=== PATIENT | female | born 2000 | race Caucasian/White ===

== ENCOUNTER 2023-05-16 18:57 | Emergency (ER) | payer SELFPAY ==
[~2023-05-16] VITALS: Ht 157.5 cm; Wt 58.0 kg
[2023-05-16 19:07] VITALS: O2SAT 100
[2023-05-16] MEDS ORDERED: SULF1TAB48 MT (21:41)
[2023-05-16] MEDS ORDERED: AMOX1TAB16 MT (21:41)
[2023-05-16] MEDS ORDERED: IBUP-2029 PO (21:41)
[2023-05-16 21:51] VITALS: BP 116/68; PULSE 84; RESP 16; TEMP 98.1
== END 2023-05-16 21:59 | disposition home or self-care (01) ==
LOC: ER 20:15
DX: N61.0 Mastitis without abscess (principal); Z90.49 Acquired absence of other specified parts of digestive tract
CPT/HCPCS: 81025; 99283